=== PATIENT | female | born 1965 | race Caucasian/White ===

== ENCOUNTER → 2024-03-29 12:59 | Outpatient (CLI) | payer OTHER, SELFPAY ==
--- NOTE | 2024-03-29 13:14 | DI.RAD.S_ITS ---
PROCEDURE: XR HAND RT MIN 3V INDICATIONS: bilateral hand pain TECHNIQUE: 3 views of the hand(s) acquired. COMPARISON: [facility], CR, XR HAND LT MIN 3V, 03/29/2024, 14:12. FINDINGS: Bones: No fractures or dislocations. Mild degenerative changes. Carpal bones are normally aligned. No suspicious bony lesions. Soft tissues: No suspicious soft tissue calcifications. IMPRESSION: Mild degenerative changes. Dictated by: Soren Verma M.D. on 03/29/2024 at 21:54 Approved by: Soren Verma M.D. on 03/29/2024 at 21:55
--- NOTE | 2024-03-29 13:14 | DI.RAD.S_ITS ---
PROCEDURE: XR HAND LT MIN 3V INDICATIONS: bilateral hand pain TECHNIQUE: 3 views of the hand(s) acquired. COMPARISON: None. FINDINGS: Bones: No fractures or dislocations. Mild degenerative changes. Carpal bones are normally aligned. No suspicious bony lesions. Soft tissues: No suspicious soft tissue calcifications. IMPRESSION: Mild degenerative changes. Dictated by: Soren Verma M.D. on 03/29/2024 at 21:52 Approved by: Soren Verma M.D. on 03/29/2024 at 21:53
[2024-03-29 14:35] LABS: C-Reactive Protein Quant < 0.5 mg/dL (<1.0); Rheumatoid Factor < 8.6 IU/mL (<12.0)
[2024-03-29 15:11] LABS: Erythrocyte Sedimentation Rate 5 MM/HR (0-20)
[2024-04-01 19:07] LABS: CCP Antibodies IgG/IgA 0 units (0-19)
[2024-04-02 19:39] LABS: ANA Screen, IFA Positive (.)
== END ==
PROVIDERS: PCP Family Medicine; Referring Provider Internal Medicine; Visit Provider Internal Medicine
DX: M79.641 Pain in right hand (principal); M79.642 Pain in left hand
CPT/HCPCS: 36415; 73130; 85651; 86038; 86140; 86200; 86430